=== PATIENT | female | born 2000 ===

== ENCOUNTER 2023-03-16 07:09 | Emergency (ER) | payer SELFPAY ==
[~2023-03-16] VITALS: Ht 162 cm; Wt 108.0 kg
[2023-03-16 07:16] VITALS: BP 131/86
--- NOTE | 2023-03-16 07:42 | ED GU-Female ---
General Chief Complaint: OB < 20 WEEKS Stated Complaint: EARLY | VAGINAL BLEEDING Nursing Triage Note: PT AMBULATORY TO ER WITH FAMILY. REPORTS RECENT POSITIVE TEST AT HOME. PT REPORTS VAGINAL BLEEDING ONSE THIS AM, DENIES PASSING ANY CLOTS OR AND PAIN. PT REPORTS THIS IS HER FIRST . 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 Source: patient Exam Limitations: no limitations History of Present Illness Date Seen by Provider: Mar 16, 2023 Time Seen by Provider: 07:15 Initial Comments 22-year-old female with no pertinent past medical history coming in due to vaginal bleeding. She had a positive test about a week ago, has not had follow-up with OB yet and no confirmatory ultrasound. LMP was mid January. Started having some spotting yesterday, increased bleeding today, has not been significant. Does not have any cramping or abdominal pain. Also denies any fever, nausea, vomiting, diarrhea, weakness, numbness, dysuria, or any other concerns. Allergies and Home Medications Allergies Coded Allergies: No Known Drug Allergies (Unverified , 03/16/23) Patient Home Medication List Home Medication List Reviewed: Yes Nitrofurantoin Monohyd/M-Cryst (Macrobid 100 mg Capsule) 100 Mg Capsule, 1 TAB PO BID Prescribed by: ARISTEO COTTER on 03/16/23 0816 Review of Systems Review of Systems Constitutional: No fever EENTM: no symptoms reported Respiratory: no symptoms reported Cardiovascular: no symptoms reported Gastrointestinal: no symptoms reported Genitourinary: see HPI Musculoskeletal: no symptoms reported Skin: no symptoms reported Psychiatric/Neurological: No Symptoms Reported Endocrine: No Symptoms Reported Past Otrkkgc-Mkjjun-Nbrfew Hx Patient Social History Tobacco Use?: No Pt feels they are or have been: No Immunizations Up To Date First/Initial COVID19 Vaccinat: RECEIVED, UNK WHEN COVID19 Vaccine Procurement Manager: UNK Past Medical History Surgeries: No Last Menstrual Period: Jan 18, 2023 Physical Exam Vital Signs Vital Signs - First Documented 03/16/23 07:16 Temp 37.1 Pulse 100 B/P (MAP) 131/86 (101) Pulse Ox 18 O2 Delivery Room Air Capillary Refill : Height, Weight, BMI Height: '" Weight: lbs. oz. kg; 41.00 BMI Method: General Appearance: WD/WN, no apparent distress HEENT: PERRL/EOMI, normal ENT inspection, pharynx normal Neck: non-tender, full range of motion, supple, normal inspection Cardiovascular: regular rate, rhythm, no edema, no murmur Respiratory: chest non-tender, lungs clear, normal breath sounds, no respiratory distress, no accessory muscle use Gastrointestinal: normal bowel sounds, non tender, soft; No distended, No guarding, No rebound Back: normal inspection, no CVA tenderness Extremities: normal range of motion, non-tender, normal inspection, no pedal edema, no calf tenderness, normal capillary refill Neurologic/Psychiatric: no motor/sensory deficits, alert, normal mood/affect Skin: normal color, warm/dry Progress/Results/Core Measures Suspected Sepsis SIRS Temperature: Pulse: 100 Respiratory Rate: Blood Pressure 131 /86 Mean: 101 Results/Orders Lab Results Laboratory Tests Test 03/16/23 07:24 03/16/23 07:46 Range/Units Urine Color RED H Urine Clarity TURBID Urine pH 5.0 5-9 Urine Specific [place] 1.020 1.016-1.022 Urine Protein 3+ H NEGATIVE Urine Glucose (UA) TRACE H NEGATIVE Urine Ketones 1+ H NEGATIVE Urine Nitrite POSITIVE H NEGATIVE Urine Bilirubin 3+ H NEGATIVE Urine Urobilinogen 4.0 < = 1.0 MG/DL Urine Leukocyte Esterase 3+ H NEGATIVE Urine RBC (Auto) 3+ H NEGATIVE Urine RBC TNTC H /HPF Urine WBC 10-25 H /HPF Urine Squamous Epithelial Cells 2-5 /HPF Urine Crystals NONE /LPF Urine Bacteria MODERATE H /HPF Urine Casts NONE /LPF Urine Mucus NEGATIVE /LPF Urine Culture Indicated YES Human Chorionic Gonadotropin, Quant 16 H <5 MIU/ML My Orders Orders - ARISTEO COTTER MD Hcg,Quantitative (03/16/23 07:36) Ua Culture If Indicated (03/16/23 07:36) Abo Rh Type (03/16/23 07:36) Urine Culture (03/16/23 07:24) Acetaminophen Tablet (Acetaminophen Ta (03/16/23 08:15) Nitrofurantoin Capsule,Macro (Macrobid C (03/16/23 08:15) Medications Given in ED Current Medications Medications Dose Ordered Sig/Ramone Route Start Time Stop Time Status Last Admin Dose Admin Acetaminophen 1,000 mg ONCE ONCE PO 03/16/23 08:15 03/16/23 08:16 DC 03/16/23 08:18 1,000 MG Nitrofurantoin Macrocrystals 100 mg ONCE ONCE PO 03/16/23 08:15 03/16/23 08:16 DC 03/16/23 08:18 100 MG Vital Signs/I&O 03/16/23 07:16 Temp 37.1 Pulse 100 B/P (MAP) 131/86 (101) Pulse Ox 18 O2 Delivery Room Air Capillary Refill : Blood Pressure Mean: 101 Progress Note : Progress Note 22-year-old female with above history coming in due to vaginal bleeding in the setting of . ABCs were intact and vitals were stable on presentation. Physical exam reassuring including a soft and nontender abdomen. She is not experiencing any subjective pain at all. She is also having very little vaginal bleeding, not concerning for hemorrhage. I did a [id number] ultrasound and I was unable to visualize a in the uterus or in the adnexa. Likely too early or she has already completed the miscarriage. We will do a beta-hCG, ABO Rh status, and urinalysis. Urine concerning for infection, given Macrobid here followed by a prescription. She is Rh+, does not require RhoGAM. Beta hCG 16, very low considering her LMP, either her is very early or she is miscarrying. She should get a repeat in the next 2 days. No concern for ectopic based on her exam at this time. Departure Impression Primary Impression: Threatened miscarriage in early Additional Impression: Cystitis Disposition: 01 HOME, SELF-CARE Condition: Stable Departure-Patient Inst. Decision time for Depature: 08:30 Referrals: [facility] (PCP/Family) Primary Care Physician Patient Instructions: Bleeding In Early Add. Discharge Instructions: We would classify this as a "threatened" miscarriage. This means that a miscarriage could happen, but but might not happen. We want you to get repeat blood work at the soonest in the next 2 days for a beta-hCG quantitative to comp are with the numbers we got today in the ER. If the number does not go up significantly, then a miscarriage is inevitable. If you begin to have cramping, you can take Tylenol. If you begin having severe abdominal pain that is concerning to you, then we would want you to come back to the ER. If you begin having enough vaginal bleeding that you are completely filling up a large pad every hour for several hours, then we would want you to also come back to the ER. Unfortunately there is no medication or any procedure that can be done to potentially save the if miscarriage is happening. We will not know if the miscarriages happening until the repeat blood work has been obtained. You also have bacteria in your urine which can increase your chance of miscarriage in the long run. Antibiotics were sent to [facility] to start that are safe during . You will be due for the next dose tonight. Your beta HcG today is 16 which is quite low. It is always possible that the is just not as far along as you thought. Scripts Nitrofurantoin Monohyd/M-Cryst (Macrobid 100 mg Capsule) 100 Mg Capsule 1 TAB PO BID for 5 Days, #10 CAP Prov: ARISTEO COTTER MD 03/16/23 Work/School Note: Family Work Note, Patient Received Medical Care In the Emergency Department On: Mar 16, 2023 Patient Will Be Able to Return to Work/School On: Mar 17, 2023 Work Release Form Date Seen in the Emergency Department: Mar 16, 2023 Return to Work: Mar 17, 2023 Restrictions: No Restrictions ARISTEO COTTER MD Mar 16, 2023 07:42
[2023-03-16 07:57] LABS: CLARITY,URINE TURBID; COLOR,URINE RED; GLUCOSE, URINE (UA) TRACE (NEGATIVE); PROTEIN,URINE 3+ (NEGATIVE)
[2023-03-16 07:58] LABS: BILIRUBIN,URINE 3+ (NEGATIVE); KETONES,URINE 1+ (NEGATIVE); LEUKOCYTE ESTERASE ,URINE 3+ (NEGATIVE); NITRITE,URINE POSITIVE (NEGATIVE)
[2023-03-16 07:59] LABS: RBC,URINE TNTC /HPF
[2023-03-16 08:01] LABS: BACTERIA,URINE MODERATE /HPF
[2023-03-16] MEDS ORDERED: NITR-65 PO (08:16)
[2023-03-16] MEDS: ACETAMINOPHEN 500 MG TABLET PO ONE (08:18)
[2023-03-16] MEDS: NITROFURANTOIN 100 MG (MACROBID) CAPSULE PO ONE (08:18)
== END 2023-03-16 08:37 | disposition home or self-care (01) ==
LOC: ER 07:13
DX: O20.0 Threatened abortion (principal); O23.10 Infections of bladder in pregnancy, unspecified trimester; Z28.311 Partially vaccinated for COVID-19; Z3A.00 Weeks of gestation of pregnancy not specified
CPT/HCPCS: 36415; 81000; 84702; 86900; 86901; 87088; 99283